=== PATIENT | male | born 1970 | race Caucasian/White ===

== ENCOUNTER 2022-08-29 13:16 | Emergency (ER) | payer BC ==
[~2022-08-29] VITALS: Ht 190.5 cm; Wt 113.4 kg
[2022-08-29 13:27] VITALS: BP 141/97
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
--- NOTE | 2022-08-29 14:12 | NUR ---
Patient left without being seen by ER Physician. Patient does not wish to proceed with medical care recommended by Dr. Koo. Patient given information related to possible complications, up to and including , which could occur as a result of leaving the hospital at this time. Patient verbalizes understanding of risks involved due to leaving against medical advice. Patient has signed AMA form.
== END 2022-08-29 14:20 | disposition left against medical advice (07) ==
LOC: ER 13:16
DX: Z53.21 Procedure and treatment not carried out due to patient leaving prior to being seen by health care provider (principal)